=== PATIENT | male | born 1990 ===

== ENCOUNTER 2017-02-21 12:48 | Emergency (ER) | payer MEDICAID, OTHER ==
[2017-02-21 13:12] VITALS: BP 120/87; PULSE 77; RESP 16; TEMP 97.6; O2SAT 100
--- NOTE | 2017-02-21 13:48 | ED PDOC ---
HPI: Dental Pain/Injury Time Seen by Provider: 02/21/17 13:39 Chief Complaint (Nursing): Headache History Per: Patient Onset/Duration Of Symptoms: Days (2) Current Symptoms Are (Timing): Still Present Severity: Mild Pain Scale Rating Of: 2 Additional Complaint(s): Right upper molar pain x 2 days. No fever. Past Medical History Vital Signs: Last Vital Signs Temp 97.6 F 02/21/17 13:11 Pulse 77 02/21/17 13:11 Resp 16 02/21/17 13:11 BP 120/87 02/21/17 13:11 Pulse Ox 100 02/21/17 13:11 - Medical History PMH: No Chronic Diseases - Family History Family History: States: Unknown Family Hx - Home Medications Home Medications: Ambulatory Orders Medication Instructions Recorded Doxycycline Hyclate 100 mg PO Q12 #14 tablet 05/16/15 Clindamycin [Cleocin] 300 mg PO TID #30 cap 02/21/17 Naproxen [Naprosyn] 500 mg PO Q12H #20 tab 02/21/17 - Allergies Allergies/Adverse Reactions: Allergies Allergy/AdvReac Type Severity Reaction Status Date / Time No Known Allergies Allergy Verified 05/24/15 18:39 Review of Systems Constitutional: Negative for: Fever ENT: Positive for: Other (Right upper molar pain) Physical Exam - Physical Exam Appears: Positive for: Non-toxic, No Acute Distress Head Exam: Positive for: ATRAUMATIC, NORMAL INSPECTION, NORMOCEPHALIC Skin: Positive for: Normal Color, Warm, DRY ENT: Positive for: Other (No facila tenderness or swelling. No rash. Mouth no abscess or carries noted.) Neurologic/Psych: Positive for: Alert, Oriented. Negative for: Motor/Sensory Deficits - ECG O2 Sat by Pulse Oximetry: 100 Disposition - Clinical Impression Clinical Impression: Pain, dental - Patient ED Disposition Is Patient to be Admitted: No Counseled Patient/Family Regarding: Diagnosis, Need For Followup, Rx Given - Disposition Referrals: Gaurav Anton DDS [Staff Provider] - [facility] [Outside] Disposition: Routine/Home Disposition Time: 13:50 Condition: FAIR Prescriptions: Clindamycin [Cleocin] 300 mg PO TID #30 cap Naproxen [Naprosyn] 500 mg PO Q12H #20 tab Instructions: Toothache (ED)
== END 2017-02-21 14:17 | disposition home or self-care (01) ==
LOC: H.ER 12:48
DX: K08.89 Other specified disorders of teeth and supporting structures (principal)